=== PATIENT | female | born 1980 | race Caucasian/White ===

== ENCOUNTER 2024-02-13 10:50 | Day surgery (SDC) | payer MEDICAID ==
[2024-02-11 12:12] LABS: BILIRUBIN,URINE NEGATIVE (Neg); CLARITY,URINE SLIGHTLY CLOUDY (Clear); COLOR,URINE YELLOW (Yellow); GLUCOSE, URINE NEGATIVE (Neg); KETONES,URINE TRACE mg/dl (Neg); LEUKOCYTE ESTERASE ,URINE NEGATIVE (Neg); NITRITES, URINE NEGATIVE (Neg); OCCULT BLOOD,URINE NEGATIVE (Neg); PROTEIN,URINE NEGATIVE (Neg); UROBILINOGEN,URINE 0.2 E.U/dL (0.2-1.0)
[2024-02-11 12:14] LABS: BASOPHILS # (AUTO) 0.1 X10'3 (0-0.2); BASOPHILS % (AUTO) 0.8 % (0-1); EOSINOPHILS # (AUTO) 0.4 X10'3 (0-0.9); EOSINOPHILS % (AUTO) 3.1 % (0-6); LYMPHOCYTES # (AUTO) 3.5 X10'3 (1.1-4.8); LYMPHOCYTES % (AUTO) 30.1 % (21-51); MEAN CORPUSCULAR HEMOGLOBIN 30.4 PG (27.0-31.0); MEAN CORPUSCULAR HGB CONC 33.9 g/dL (33.0-36.5); MEAN CORPUSCULAR VOLUME 89.6 FL (78-98); MEAN PLATELET VOLUME 6.4 FL (7.4-10.4); MONOCYTES # (AUTO) 0.6 X10'3 (0-0.9); MONOCYTES % (AUTO) 4.9 % (2-12); NEUTROPHILS # (AUTO) 7.1 X10'3 (1.8-7.7); NEUTROPHILS % (AUTO) 61.1 % (42-75); PRE OP HEMATOCRIT 34.6 % (35.0-45.0); PRE OP HEMOGLOBIN 11.7 g/dL (12.0-16.0); PRE OP PLATELET COUNT 433 X10'3 (140-440); PRE OP WHITE BLOOD COUNT 11.6 10'3 (4.8-10.8); RED BLOOD COUNT 3.86 X10'6 (4.20-5.60); RED CELL DISTRIBUTION WIDTH 12.7 % (11.5-14.5)
[2024-02-11 12:17] LABS: UA COLLECTION TYPE NON-SPECIFIED
[2024-02-11 12:18] LABS: SQUAMOUS EPITHELIAL CELL,UR MANY /LPF (FEW)
[2024-02-11 12:19] LABS: MUCUS STRANDS FEW /LPF (Neg)
[2024-02-11 12:20] LABS: AMORPHOUS URATES 1+; BACTERIA,URINE FEW /HPF (Neg); HYALINE CASTS >30 /LPF (NEGATIVE); RBC,URINE 0-2 /HPF (0-2); WBC,URINE 0-4 /HPF (0-4)
[2024-02-11 12:25] LABS: ALBUMIN 4.2 G/DL (3.4-5.0); ALKALINE PHOSPHATASE 56 IU/L (46-116); BLOOD UREA NITROGEN 20 MG/DL (7-18); BUN/CREATININE RATIO 18.7 (10.0-20.0); CALCIUM 10.4 MG/DL (8.5-10.1); CHLORIDE 101 MMOL/L (99-107); CREATININE 1.07 MG/DL (0.40-0.90); PRE OP ALT 50 U/L (30-65); PRE OP ANION GAP 8 (8-16); PRE OP AST 25 U/L (10-37); PRE OP BILIRUB, TOTAL 0.3 MG/DL (0.0-1.0); PRE OP GLUCOSE 114 MG/DL (70-104); PRE OP POTASSIUM 4.3 MMOL/L (3.4-5.1); PRE OP SODIUM 136 MMOL/L (135-145); TOTAL CARBON DIOXIDE 26.9 MMOL/L (24-32); TOTAL PROTEIN 8.3 G/DL (6.4-8.2); eGFR 56 ML/MIN
[2024-02-13] VITALS (11 sets, daily range): BP systolic 109–139; BP diastolic 67–95; PULSE 68–85; RESP 11–18; TEMP 96; O2SAT 97–100
[~2024-02-13] VITALS: Ht 179.1 cm; Wt 112.0 kg
[~2024-02-13 10:50] MED LIST: ACET-2778 PO; ALBU18HF2 INH; AMLO-708 PO; ATOR40TA72 PO; BUDE10.22 INH; BUPIVAcaine 2.5mg/ml inj 50ml vial (contains preservative) ONE; CHOL500050 PO; CINNAMON; DOXY-224 PO; HYDR25TA5 PO; IBUP-1986 PO; INSU100V9 SQ; IRON; LEVO50TA8 PO; LOSA100T58 PO; MAGNESIUM; METF-517 PO; METO50TA16 PO; MORP30TA6 PO; NEBULIZER; OMEP20CA16 PO; PROBIOTIC; SPIR100T5 PO; SUMA50TA17 PO; VENL75CA61 PO; VIT B6; VIT C; VIT K; [UNRECOGNIZED DRUG - OTHER]; albuterol 2.5 MG/3 ML nebule NEB ONE; bacitracin 15gm ointment TP ONE; ringers solution, lacted 1,000 ML IV SCH
[2024-02-13] MEDS: famotidine 20mg tablet PO ONE (11:35)
[2024-02-13] MEDS: DOCUMENT DATE & TIME OF BETA-BLOCKER PO ONE (11:35)
[2024-02-13] MEDS: Cefazolin 3 GM/100ML NS IVPB 100 ML IV ONE (11:36)
[2024-02-13] MEDS ORDERED: sevoflurane 250ml liquid IH ONE (12:58)
[2024-02-13] MEDS ORDERED: midazolam 1 mg/ML 2ml injection ONE (13:02)
[2024-02-13] MEDS ORDERED: fentaNYL /PF 50mcg/ml 5ml ampule ONE (13:04)
[2024-02-13] MEDS ORDERED: dexamethasone sod phosphate 4mg/ml inj. ONE (13:57)
[2024-02-13] MEDS ORDERED: propofol inj 20 ML IV ONE (13:57)
[2024-02-13] MEDS: BUPIVAcaine 2.5mg/ml inj 50ml vial (contains preservative) SQ ONE (14:01)
[2024-02-13] MEDS ORDERED: meperidine/PF 25mg/ml syringe IV PRN ×2 (14:20)
[2024-02-13] MEDS ORDERED: morphine 2 MG/ML inj. syringe IV PRN (14:20)
[2024-02-13] MEDS ORDERED: ondansetron/PF 4mg/2ml inj IV PRN (14:20)
[2024-02-13] MEDS ORDERED: proCHLORperazine 10 MG/2 ml inj IV PRN (14:20)
[2024-02-13] MEDS ORDERED: ringers solution, lacted 1,000 ML IV SCH (14:20)
[2024-02-13] MEDS: meperidine/PF 25mg/ml syringe IV PRN (14:35)
[2024-02-13] MEDS: morphine 4 MG/ML inj SYRINge IV PRN (14:42)
[2024-02-13] MEDS: HYDROcodone/acetaminophen 10/325mg tab PO ONE (15:03)
== END 2024-02-13 15:38 | disposition home or self-care (01) ==
LOC: PAS 10:50 → EDBD 14:00 → PAS 15:38
PROVIDERS: ATTEND Podiatrist Foot & Ankle Surgery
DX: S91.301A Unspecified open wound, right foot, initial encounter (principal); E11.69 Type 2 diabetes mellitus with other specified complication; M86.171 Other acute osteomyelitis, right ankle and foot; I10 Essential (primary) hypertension; J45.909 Unspecified asthma, uncomplicated; E66.9 Obesity, unspecified; G47.33 Obstructive sleep apnea (adult) (pediatric); G43.909 Migraine, unspecified, not intractable, without status migrainosus; F41.9 Anxiety disorder, unspecified; F32.A Depression, unspecified; Z79.1 Long term (current) use of non-steroidal anti-inflammatories (NSAID); Z79.2 Long term (current) use of antibiotics; Z79.82 Long term (current) use of aspirin; Z79.84 Long term (current) use of oral hypoglycemic drugs; Z79.890 Hormone replacement therapy; Z79.899 Other long term (current) drug therapy; Z90.89 Acquired absence of other organs; Z98.890 Other specified postprocedural states; Z68.34 Body mass index [BMI] 34.0-34.9, adult; Z88.5 Allergy status to narcotic agent; Z83.3 Family history of diabetes mellitus; Z82.49 Family history of ischemic heart disease and other diseases of the circulatory system; X58.XXXA Exposure to other specified factors, initial encounter; Y93.89 Activity, other specified; Y92.89 Other specified places as the place of occurrence of the external cause; Y99.8 Other external cause status
CPT/HCPCS: 11044; 15275; 36415; 80053; 81001; 82948; 85025; 87070; 87075; 87077; 87102; 87186; 93005; A6223; J0690; J1100; J2175; J2250; J2270; J2405; J2704; J3010; J3490; J7030; J7120; Q4116; Z7506; Z7508; Z7512; A4215; A4618; A6449; A7000